=== PATIENT | male | born 1980 | race Caucasian/White ===

== ENCOUNTER 2016-09-15 08:30 | Emergency (ER) | payer OTHER ==
--- NOTE | ~2016-09-15 | EKG ---
PATIENT: ARVIND ALEXANDER UNIT #: [id number] Ventricular Rate: 76 BPM Atrial Rate: 76 BPM P-R Interval: 148 ms QRS Duration: 104 ms Q-T Interval: 400 ms QTC Calculation(Bezet): 450 ms P [place]: 7 degrees Calculated R [place]: 54 degrees Calculated T [place]: 22 degrees Diagnosis Line: Normal sinus rhythm Diagnosis Line: Normal ECG Diagnosis Line: When compared with ECG of 06-OCT-2010 05:02, Diagnosis Line: No significant change was found Diagnosis Line: Confirmed by MICHELLE GONZALES MD ([id number]) on Diagnosis Line: 09/18/2016 8:39:38 AM INTERPRETING MD: JANET NOEL
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
--- NOTE | ~2016-09-15 | CR20 ---
[facility]. [facility] A Service of [facility] RADIOLOGY TEXT RESULTS PATIENT: ARVIND ALEXANDER LOCATION: SED : 82 UNIT #: [id number] AGE: [address]: La Chau MD SEX: M ORDER DR: [id number] [place] [id number] E MR#: [id number] Acc #: [id number] NAME: ARVIND ALEXANDER : 1980 SEX: M STUDY DATE/TIME: 09/15/2016 9:15 UNIT: SED ROOM: STUDY DESCRIPTION: CR Ankle Min 3 Views Lt Attending Physician: La Chau M.D. Ordering Physician: La Chau M.D. Primary Care Physician: Primary Care Physician No MEDICAL IMAGING REPORT This report is preliminary unless electronic signature is present. EXAM Three views left ankle. INDICATIONS Left ankle pain after a fall 6 days ago. FINDINGS No acute fracture or subluxation of the left ankle is identified. However, the patient does have a fracture seen through the base of the little toe metatarsal. There is also some mild degenerative change involving the left ankle as well as some enthesopathic change along the plantar aspect of the calcaneus and at the insertion of the Achilles tendon. There also may be some mild soft tissue swelling along the lateral aspect of the ankle. Correlation with physical exam findings is recommended. IMPRESSION 1. While there is no acute fracture or subluxation at the left ankle, patient does have a fracture involving the base of the little toe metatarsal. Some mild sclerosis associated with this fracture suggests that it could be subacute, which would be in keeping with history of injury 6 days ago. No other fractures are seen. Dictated by... Marjan Guerra M.D. THIS IS AN ELECTRONICALLY VERIFIED REPORT Marjan Guerra M.D. at 09/16/2016 5:37 PM AFF/psc TD: 09/15/2016 18:43 [facility] A Service of [facility] RADIOLOGY TEXT RESULTS PATIENT: ARVIND ALEXANDER LOCATION: SED : [birth year] UNIT #: [id number] AGE: [address]: La Chau MD SEX: M ORDER DR: BERTHA #: [id number] MEDICAL IMAGING REPORT Page 1 of 1
[~2016-09-15 08:30] MED LIST: ACETAMINOPHEN500 M3 PO; LISINOPRIL10 MG PO; PRILOSEC20 MG PO
== END 2016-09-15 10:35 | disposition home or self-care (01) ==
LOC: SED 08:30
DX: S62.002A Unspecified fracture of navicular [scaphoid] bone of left wrist, initial encounter for closed fracture (principal); S93.402A Sprain of unspecified ligament of left ankle, initial encounter; F17.200 Nicotine dependence, unspecified, uncomplicated; Z88.0 Allergy status to penicillin; Z79.899 Other long term (current) drug therapy; W19.XXXA Unspecified fall, initial encounter; Y92.9 Unspecified place or not applicable
CPT/HCPCS: 29125; 70450; 73110; 73610; 93005; 99284